=== PATIENT | male | born 1965 ===

== ENCOUNTER 2024-07-22 07:22 | Day surgery (SDC) | payer OTHER ==
[~2024-07-22] VITALS: Ht 175.3 cm; Wt 124.3 kg
[~2024-07-22 07:22] MED LIST: ASPIR 8181 M1 PO; Hydrochloroth12.5 MG PO; Lactated Ringer's 1,000 ML IV SCH; Nexium40 MG PO; ZESTRIL40 M1 PO
[2024-07-22] MEDS ORDERED: SPIRONOLACTONE25 MG PO (08:58)
[2024-07-22 09:04] VITALS: BP 148/86
--- NOTE | 2024-07-22 09:13 | NUR ---
History, Chart, Medications and Allergies reviewed before start of procedure. Pre-Op teaching done. Pt verbalizes understanding. Patient states colon prep results LIGHT YELLOW. Patient States Post-Procedure ride home has been arranged WITH [facility].
[2024-07-22] MEDS ORDERED: propofoL 40 ML IV ONE (09:22)
[2024-07-22] MEDS ORDERED: Lidocaine HCl 4% 5 ML SDA INH SCH (09:30)
[2024-07-22] MEDS ORDERED: Lidocaine HCl 4% 5 ML SDA ONE (09:36)
[2024-07-22] MEDS ORDERED: propofoL 20 ML IV ONE (10:01)
[2024-07-22 10:19] VITALS: BP 137/90
--- NOTE | 2024-07-22 10:41 | NUR ---
Discharge instructions reviewed with patient. Patient verbalizes understanding. Copy given to patient to take home. Patient States Post-Procedure ride home has been arranged. Discharged via wheelchair to private car for ride home.
== END 2024-07-22 10:43 | disposition home or self-care (01) ==
LOC: ORSCMMR 07:22 → ORD 09:00 → ORSCMMR 10:43
PROVIDERS: Internal Medicine Gastroenterology
PROC: 0DJD8ZZ Inspection of Lower Intestinal Tract, Via Natural or Artificial Opening Endoscopic (ICD-10-PCS; principal; 2024-07-22 09:00)
PROC: 0DB48ZX Excision of Esophagogastric Junction, Via Natural or Artificial Opening Endoscopic, Diagnostic (ICD-10-PCS; principal; 2024-07-22 09:00)
DX: K21.9 Gastro-esophageal reflux disease without esophagitis (principal); K44.9 Diaphragmatic hernia without obstruction or gangrene; Z12.11 Encounter for screening for malignant neoplasm of colon; K57.30 Diverticulosis of large intestine without perforation or abscess without bleeding; Z86.73 Personal history of transient ischemic attack (TIA), and cerebral infarction without residual deficits; I10 Essential (primary) hypertension; E66.01 Morbid (severe) obesity due to excess calories; Z68.41 Body mass index [BMI] 40.0-44.9, adult; Z79.82 Long term (current) use of aspirin; Z79.899 Other long term (current) drug therapy
CPT/HCPCS: 88305; J2003; J2704; J7120